=== PATIENT | male | born 1980 | race Caucasian/White ===

== ENCOUNTER 2020-06-05 10:56 | Observation (INO) | payer OTHER ==
--- NOTE | 2020-06-05 11:33 | ED ---
Recheck HPI - General Source: patient, RN notes reviewed, old records reviewed Mode of arrival: ambulatory Limitations: no limitations <Cary Carson - Last Filed: 06/05/20 13:50> <Christina Silverman - Last Filed: 06/06/20 13:45> - General Chief Complaint: Recheck/Abnormal Lab/Rx Stated Complaint: sent by dialysis for eval Time Seen by Provider: 06/05/20 11:04 - History of Present Illness Initial Comments: 40-year-old male who is a resident of [place] recently moved this weekend to hear presents to the ER today from dialysis needing lab work and establish PCP in order to receive dialysis. He states that he was started on dialysis in March of this year for her renal failure and heart failure in [place]. He has an indwelling PICC line. Patient reports that his last dialysis was on Friday. At this time he denies any significant chest pain or shortness of breath. He states he moved here and does not have a PCP or her peanut separator in the area to continue to order dialysis for him. Patient states that he is a diabetic. He is a relatively poor historian and does not have any exact description of the sudden onset of renal failure at this time. (Cary Carson) - Related Data Home Medications Medication Instructions Recorded Confirmed Glimepiride [Amaryl] 1 mg PO DAILY 06/05/20 06/05/20 amLODIPine [Norvasc] 10 mg PO HS 06/05/20 06/05/20 carvediloL [Coreg] 6.25 mg PO BID 06/05/20 06/05/20 Allergies Allergy/AdvReac Type Severity Reaction Status Date / Time No Known Allergies Allergy Verified 06/05/20 12:52 Review of Systems ROS Other: All systems not noted in ROS Statement are negative. <Cary Carson - Last Filed: 06/05/20 13:50> ROS Other: All systems not noted in ROS Statement are negative. <Christina Silverman - Last Filed: 06/06/20 13:45> ROS Statement: Those systems with pertinent positive or pertinent negative responses have been documented in the HPI. 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 Absent: scleral icterus, conjunctival injection, periorbital swelling ENT exam: Present: normal exam, mucous membranes moist Neck exam: Present: normal inspection. Absent: tenderness, meningismus, lymphadenopathy Respiratory exam: Present: normal lung sounds bilaterally. Absent: respiratory distress, wheezes, rales, rhonchi, stridor Cardiovascular Exam: Present: regular rate, normal rhythm, normal heart sounds, other ( is an indwelling PIC line over the right chest wall). Absent: systolic murmur, diastolic murmur, rubs, gallop, clicks GI/Abdominal exam: Present: soft, normal bowel sounds. Absent: distended, tenderness, guarding, rebound, rigid Extremities exam: Present: normal inspection, full ROM, normal capillary refill. Absent: tenderness, pedal edema, joint swelling, calf tenderness Back exam: Present: normal inspection Neurological exam: Present: alert, oriented X3, CN II-XII intact <CarlaCary tillman - Last Filed: 06/05/20 13:50> - General Exam Comments Initial Comments: 40-year-old male. Alert and oriented. (Cary Carson) Course Vital Signs 06/05/20 06/05/20 06/05/20 10:58 12:44 14:50 Temperature 98.3 F Pulse Rate 90 82 87 Respiratory 18 18 18 Rate Blood Pressure 181/91 146/76 163/87 O2 Sat by Pulse 100 99 99 Oximetry Medical Decision Making - Lab Data Result diagrams: 06/05/20 12:15 06/05/20 12:15 <Cary Carson - Last Filed: 06/05/20 13:50> - Lab Data Result diagrams: 06/06/20 05:49 06/06/20 05:49 <Christina Silverman - Last Filed: 06/06/20 13:45> - Medical Decision Making 40-year-old male history of renal failure and CHF and diabetes presents emergency department today after recently moving from [place] with complaints of needing dialysis. He showed up to [facility] with no orders for dialysis and does not have a PCP or peanut separator of the area. Patient states he was told to come here for evaluation. At this time Patient has no complaints. Labs show evidence of renal failure. He does still produce urine. Patient's case was discussed with Dr. Silverman movements are and the Patient has no PCP to follow-up we will admit the Patient for observation for dialysis of consultation nephrology as well as social work for further treatment for chronic conditions at this time. He has been on dialysis since March and does have an indwelling PICC line. (Cary Carson) I was available for consultation in the emergency department. The history and physical exam were done by the midlevel provider. I was consulted for this patients care. I reviewed the case with the midlevel provider and based on their presentation of the patient, I agree with the assessment, medical decision making and plan of care as documented. I evaluated the patient myself. Chart was dictated using [employer] dictation software. Attempts were made to correct any dictation errors however some typographical errors may persist. Patient was seen during a national state of emergency due to the Covid-19 pandemic. (Christina Silverman) - Lab Data Lab Results 06/05/20 06/05/20 06/05/20 Range/Units 12:15 12:15 12:15 WBC 7.4 (3.8-10.6) k/uL RBC 2.87 L (4.30-5.90) m/uL Hgb 8.9 L (13.0-17.5) gm/dL Hct 26.4 L (39.0-53.0) % MCV 92.0 (80.0-100.0) fL MCH 30.8 (25.0-35.0) pg MCHC 33.5 (31.0-37.0) g/dL RDW 13.6 (11.5-15.5) % Plt Count 264 (150-450) k/uL MPV 7.3 Neutrophils % 70 % Lymphocytes % 18 % Monocytes % 5 % Eosinophils % 4 % Basophils % 1 % Neutrophils # 5.2 (1.3-7.7) k/uL Lymphocytes # 1.4 (1.0-4.8) k/uL Monocytes # 0.4 (0-1.0) k/uL Eosinophils # 0.3 (0-0.7) k/uL Basophils # 0.1 (0-0.2) k/uL PT 9.6 (9.0-12.0) sec INR 0.9 (<1.2) APTT 21.9 L (22.0-30.0) sec Sodium 139 (137-145) mmol/L Potassium 4.7 (3.5-5.1) mmol/L Chloride 110 H (98-107) mmol/L Carbon Dioxide 25 (22-30) mmol/L Anion Gap 4 mmol/L BUN 51 H (9-20) mg/dL Creatinine 5.90 H (0.66-1.25) mg/dL Est GFR (CKD-EPI)AfAm 13 (>60 ml/min/1.73 sqM) Est GFR (CKD-EPI)NonAf 11 (>60 ml/min/1.73 sqM) Glucose 260 H (74-99) mg/dL Calcium 8.0 L (8.4-10.2) mg/dL Total Bilirubin 0.3 (0.2-1.3) mg/dL AST 16 L (17-59) U/L ALT 10 (4-49) U/L Alkaline Phosphatase 92 (38-126) U/L Total Protein 5.2 L (6.3-8.2) g/dL Albumin 2.8 L (3.5-5.0) g/dL Coronavirus (PCR) (Not Detectd) 06/05/20 Range/Units 12:15 WBC (3.8-10.6) k/uL RBC (4.30-5.90) m/uL Hgb (13.0-17.5) gm/dL Hct (39.0-53.0) % MCV (80.0-100.0) fL MCH (25.0-35.0) pg MCHC (31.0-37.0) g/dL RDW (11.5-15.5) % Plt Count (150-450) k/uL MPV Neutrophils % % Lymphocytes % % Monocytes % % Eosinophils % % Basophils % % Neutrophils # (1.3-7.7) k/uL Lymphocytes # (1.0-4.8) k/uL Monocytes # (0-1.0) k/uL Eosinophils # (0-0.7) k/uL Basophils # (0-0.2) k/uL PT (9.0-12.0) sec INR (<1.2) APTT (22.0-30.0) sec Sodium (137-145) mmol/L Potassium (3.5-5.1) mmol/L Chloride (98-107) mmol/L Carbon Dioxide (22-30) mmol/L Anion Gap mmol/L BUN (9-20) mg/dL Creatinine (0.66-1.25) mg/dL Est GFR (CKD-EPI)AfAm (>60 ml/min/1.73 sqM) Est GFR (CKD-EPI)NonAf (>60 ml/min/1.73 sqM) Glucose (74-99) mg/dL Calcium (8.4-10.2) mg/dL Total Bilirubin (0.2-1.3) mg/dL AST (17-59) U/L ALT (4-49) U/L Alkaline Phosphatase (38-126) U/L Total Protein (6.3-8.2) g/dL Albumin (3.5-5.0) g/dL Coronavirus (PCR) Not Detected (Not Detectd) 06/05/20 13:20 EKG performed at 1209 shows normal sinus rhythm possible left atrial enlarg ement. Ventricular hypertrophy with repolarization around. Prolonged QT. Ventricular rate of 85 bpm.. Interval is 132 ms. QS ration is 96 ms. QT QTc is 412/[address] elevation. (Cary Carson) Disposition Is patient prescribed a controlled substance at d/c from ED?: No Time of Disposition: 13:52 <Cary Carson - Last Filed: 06/05/20 13:50> <Christina Silverman - Last Filed: 06/06/20 13:45> Clinical Impression: Dialysis patient, Diabetes, Renal failure Disposition: ADMITTED IP TO THIS HOSP Condition: Stable
[2020-06-05] MEDS ORDERED: LABETALOL 5 MG/ML VIAL MDV IVP STA (11:36)
[2020-06-05 12:30] LABS: Basophils # (A) 0.1 k/uL (0-0.2); Basophils % (A) 1 %; Eosinophils # (A) 0.3 k/uL (0-0.7); Eosinophils % (A) 4 %; HCT 26.4 % (39.0-53.0); HGB 8.9 gm/dL (13.0-17.5); Lymphocytes # (A) 1.4 k/uL (1.0-4.8); Lymphocytes % (A) 18 %; MCH 30.8 pg (25.0-35.0); MCHC 33.5 g/dL (31.0-37.0); Mean Platelet Volume 7.3; Monocytes # (A) 0.4 k/uL (0-1.0); Monocytes % (A) 5 %; Neutrophils # (A) 5.2 k/uL (1.3-7.7); Neutrophils % (A) 70 %; Platelet Count 264 k/uL (150-450); RBC 2.87 m/uL (4.30-5.90); RDW 13.6 % (11.5-15.5); WBC 7.4 k/uL (3.8-10.6)
[2020-06-05 12:39] LABS: Albumin 2.8 g/dL (3.5-5.0); Potassium 4.7 mmol/L (3.5-5.1); Total Bilirubin 0.3 mg/dL (0.2-1.3); Total Protein 5.2 g/dL (6.3-8.2)
[2020-06-05 12:48] LABS: INR 0.9 (<1.2)
[2020-06-05 12:49] LABS: Partial Thromboplastin Time 21.9 sec (22.0-30.0); Prothrombin Time 9.6 sec (9.0-12.0)
[2020-06-05] MEDS ORDERED: ACETAMINOPHEN TAB 325 MG TAB PO PRN (13:52)
[2020-06-05] MEDS ORDERED: traMADol 50 MG TAB PO PRN (13:52)
[2020-06-05] MEDS ORDERED: NALOXONE 0.4 MG/ML 1 ML VIAL IV PRN (13:52)
[2020-06-05] MEDS ORDERED: ONDANSETRON 4 MG/2 ML VIAL IVP PRN (13:52)
[2020-06-05] MEDS ORDERED: oxyCODONE-APAP 5-325MG 1 EACH TAB PO PRN (13:52)
--- NOTE | 2020-06-05 16:17 | P.HPIM ---
History of Present Illness H&P Date: 06/05/20 Chief Complaint: Patient needs dialysis 40-year-old male with a history of diabetes and hypertension with end- stage renal disease presents to [facility] needing dialysis. Patient just moved from [place] on Friday. Patient has not had time to establish with a primary care physician and a pastoral counselor. Patient states he usually gets dialysis Friday, Friday, and Friday. He states that he was started on dialysis in March of this year for his renal failure and heart failure in [place]. He has an indwelling PICC line. Patient states that he has been noncompliant with medical follow-up prior to his end-stage renal disease because he had no insurance intermittently throughout his life. As a result, he was unable to control his hypertension or diabetes which resulted in renal failure with dialysis treatment. Patient does smoke cigarettes on a daily basis. 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 Past Psychological History: No Psychological Hx Reported Smoking Status: Current every day smoker Past Alcohol Use History: None Reported Past Drug Use History: Marijuana Medications and Allergies Home Medications Medication Instructions Recorded Confirmed Type Glimepiride [Amaryl] 1 mg PO DAILY 06/05/20 06/05/20 History amLODIPine [Norvasc] 10 mg PO HS 06/05/20 06/05/20 History carvediloL [Coreg] 6.25 mg PO BID 06/05/20 06/05/20 History Allergies Allergy/AdvReac Type Severity Reaction Status Date / Time No Known Allergies Allergy Verified 06/05/20 12:52 Physical Exam Osteopathic Statement: *. No significant issues noted on an osteopathic structural exam other than those noted in the History and Physical/Consult. Vitals: Vital Signs Temp Pulse Resp BP Pulse Ox 06/05/20 14:50 87 18 163/87 99 06/05/20 12:44 82 18 146/76 99 06/05/20 10:58 98.3 F 90 18 181/91 100 Intake and Output 06/05/20 06/05/20 06/05/20 06:59 14:59 22:59 Other: Weight 61.235 kg General: [non toxic], [no distress], [appears at stated age] Derm: [warm], [dry] Head: [atraumatic], [normocephalic], [symmetric] Eyes: [EOMI], [no lid lag], [anicteric sclera] Mouth: [no lip lesion], [mucus membranes moist] Cardiovascular: [S1S2 reg], [no murmur], [positive posterior tibial pulse bilateral], Lungs: [CTA bilateral], [no rhonchi, no rales] , [no accessory muscle use] Abdominal: [soft], [ nontender to palpation], [no guarding], [no appreciable organomegaly] Ext: [no gross muscle atrophy], [no edema], [no contractures] Neuro: [ CN II-XI grossly intact], [no focal neuro deficits] Psych: [Alert], [oriented], [appropriate affect] Results CBC & Chem 7: 06/05/20 12:15 06/05/20 12:15 Labs: Abnormal Lab Results - Last 24 Hours (Table) 06/05/20 06/05/20 06/05/20 Range/Units 12:15 12:15 12:15 RBC 2.87 L (4.30-5.90) m/uL Hgb 8.9 L (13.0-17.5) gm/dL Hct 26.4 L (39.0-53.0) % APTT 21.9 L (22.0-30.0) sec Chloride 110 H (98-107) mmol/L BUN 51 H (9-20) mg/dL Creatinine 5.90 H (0.66-1.25) mg/dL Glucose 260 H (74-99) mg/dL Calcium 8.0 L (8.4-10.2) mg/dL AST 16 L (17-59) U/L Total Protein 5.2 L (6.3-8.2) g/dL Albumin 2.8 L (3.5-5.0) g/dL Assessment and Plan Assessment: 1. End-stage renal disease on hemodialysis Friday and Friday Consult nephrology for hemodialysis management 2. Normocytic anemia likely secondary to anemia of chronic disease with renal failure Check iron studies Monitor hemoglobin 3. Ruk-hqispjf-ovaxrajcm diabetes mellitus with hyperglycemia Insulin sliding scale Check hemoglobin A1c Lipid panel 4. Tobacco dependent NicoDerm CQ Smoking cessation counseled 5. GI and DVT prophylaxis 6. A.m. labs Patient is full code And does not have a PCP since he is new to the area Greater than 45 minutes spent with greater than 50% [id number] time coordinating care and counseling patient Patient will be admitted to obs Time with Patient: Greater than 30
[2020-06-05] MEDS: FAMOTIDINE 20 MG TAB PO SCH (16:28)
[2020-06-05] MEDS: carvediloL 6.25 MG TAB PO SCH (16:28)
[2020-06-05] MEDS: NICOTINE 21MG/24HR PATCH TRANSDERM SCH (16:28)
[2020-06-05 17:11] LABS: Glucose,Whole Blood 118 mg/dL (75-99)
[2020-06-05] MEDS: INSULIN ASPART (NovoLOG) 100 UNIT/ML VIAL SQ SCH (17:17)
[2020-06-05] MEDS: amLODIPine 10 MG TAB PO SCH (22:18)
[2020-06-05 22:21] LABS: Glucose,Whole Blood 243 mg/dL (75-99)
[2020-06-06 06:24] LABS: Basophils # (A) 0.1 k/uL (0-0.2); Basophils % (A) 1 %; Eosinophils # (A) 0.3 k/uL (0-0.7); Eosinophils % (A) 5 %; HCT 24.2 % (39.0-53.0); HGB 8.1 gm/dL (13.0-17.5); Lymphocytes # (A) 1.6 k/uL (1.0-4.8); Lymphocytes % (A) 23 %; MCH 30.6 pg (25.0-35.0); MCHC 33.5 g/dL (31.0-37.0); MCV 91.6 fL (80.0-100.0); Mean Platelet Volume 7.1; Monocytes # (A) 0.4 k/uL (0-1.0); Monocytes % (A) 6 %; Neutrophils # (A) 4.3 k/uL (1.3-7.7); Neutrophils % (A) 63 %; Platelet Count 263 k/uL (150-450); RBC 2.64 m/uL (4.30-5.90); RDW 13.5 % (11.5-15.5); WBC 6.7 k/uL (3.8-10.6)
[2020-06-06 07:17] LABS: Glucose,Whole Blood 98 mg/dL (75-99)
[2020-06-06] MEDS: INSULIN ASPART (NovoLOG) 100 UNIT/ML VIAL SQ SCH ×4 (07:22→21:43)
[2020-06-06 07:33] LABS: Appearance,Urine Clear (Clear); Bacteria,Urine Rare /hpf; Bilirubin,Urine Negative (Negative); Blood,Urine Trace (Negative); Color,Urine Light Yellow; Glucose,Urine (UA) 3+ (Negative); Ketones,Urine Negative (Negative); Leukocyte Esterase,Urine Negative (Negative); Mucus,Urine Rare /hpf; Nitrite,Urine Negative (Negative); PH, Urine 6.5 (5.0-8.0); Protein,Urine 3+ (Negative); RBC,Urine 2 /hpf (0-5); Specific Gravity,Urine 1.014 (1.001-1.035); Urobilinogen,Urine <2.0 mg/dL (<2.0); WBC,Urine 3 /hpf (0-5)
[2020-06-06] MEDS: carvediloL 6.25 MG TAB PO SCH ×2 (08:24→17:48)
[2020-06-06] MEDS: FAMOTIDINE 20 MG TAB PO SCH (08:24)
[2020-06-06] MEDS: GLIMEPIRIDE 1 MG TAB PO SCH (08:24)
[2020-06-06] MEDS: NICOTINE 21MG/24HR PATCH TRANSDERM SCH (08:25)
[2020-06-06 10:23] LABS: % Iron Saturation 18.25 (15.00-50.00); African American GFR (CKD) 13.1 (60.0-200.0); Albumin 2.9 g/dL (3.80-4.90); Albumin/Globulin Ratio 1.93 (1.60-3.17); Anion Gap 9.2 mmol/L (4.00-12.00); BUN/Creat Ratio 9.3 Ratio (12.00-20.00); Calcium 8.3 mg/dL (8.7-10.3); Carbon Dioxide 21.8 mmol/L (21.6-31.8); Chol/HDL Ratio 5.22; Globulin 1.5 g/dL (1.6-3.3); LDL Cholesterol,Calculated 136.6 mg/dL (0.0-131.0); Non-African American GFR(CKD) 11.3 (60.0-200.0); Potassium 4.4 mmol/L (3.5-5.5); Total Bilirubin 0.1 mg/dL (0.3-1.2); Total Protein 4.4 g/dL (6.2-8.2); VLDL Calculation 36.4 mg/dL (5.00-40.00)
--- NOTE | 2020-06-06 10:52 | P.NPCON ---
History of Present Illness - Reason for Consult end stage renal disease - History of Present Illness Reason for consultation: End-stage renal disease History of present illness: Patient is a 40-year-old male seen in renal consultation for end-stage renal disease. He is maintained on hemodialysis on Friday schedule. Patient states he was recently started on dialysis and was receiving treatments in [place]. He moved here but doesn't have dialysis set up outpatient. He came to the hospital to get his dialysis treatment and for outpatient dialysis set up. His last treatment was on Friday. He makes good urine. Denies vomiting or diarrhea. No fever or chills. Oral intake is fair. No edema. Patient states the reason for his kidney failure his blood pressure and uncontrolled diabetes. Blood pressures stable. No chest pain or shortness of breath. He denies family history of renal disease. Vital signs are stable. General: The patient appeared well nourished and normally developed. HEENT: Head exam is unremarkable. Neck is without jugular venous distension. LUNGS: Breath sounds decreased. HEART: Rate and Rhythm are regular. ABDOMEN: Soft, nontender. EXTREMITITES: No edema. 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 Past Psychological History: No Psychological Hx Reported Smoking Status: Current every day smoker Past Alcohol Use History: None Reported Past Drug Use History: Marijuana Medications and Allergies Home Medications Medication Instructions Recorded Confirmed Type Glimepiride [Amaryl] 1 mg PO DAILY 06/05/20 06/05/20 History amLODIPine [Norvasc] 10 mg PO HS 06/05/20 06/05/20 History carvediloL [Coreg] 6.25 mg PO BID 06/05/20 06/05/20 History Allergies Allergy/AdvReac Type Severity Reaction Status Date / Time No Known Allergies Allergy Verified 06/05/20 12:52 Physical Exam Vitals: Vital Signs Temp Pulse Pulse Resp BP BP Pulse Ox 06/06/20 06:57 98.2 F 82 17 150/76 99 06/06/20 02:00 97.7 F 75 14 141/69 100 06/05/20 22:00 97.9 F 80 15 157/82 98 06/05/20 16:24 98.4 F 89 16 173/89 98 06/05/20 14:50 87 18 163/87 99 06/05/20 12:44 82 18 146/76 99 06/05/20 10:58 98.3 F 90 18 181/91 100 Intake and Output 06/05/20 06/06/20 06/06/20 22:59 06:59 14:59 Other: Voiding Method Toilet # Voids 0 1 Results - Lab Results Most recent lab results Calcium 8.3 mg/dL (8.7-10.3) L 06/06/20 05:49 06/06/20 05:49 06/06/20 05:49 Assessment and Plan Plan: Assessment: 1. End-stage renal disease maintained on hemodialysis on Friday schedule. Has a permacath. 2. Diabetes mellitus. 3. Hypertension with chronic kidney disease. Stable. 4. Anemia of chronic kidney disease. Rule out iron deficiency. Plan: Hemodialysis today and again tomorrow. Check iron studies. Case management to set up outpatient hemodialysis. Thank you for the consultation. I will continue to follow the patient with you during his hospital stay.
--- NOTE | 2020-06-06 10:58 | XR ---
EXAMINATION TYPE: XR chest 2V DATE OF EXAM: 06/06/2020 COMPARISON: NONE TECHNIQUE: PA and lateral views submitted. HISTORY: Shortness of breath FINDINGS: The lungs are clear and there is no pneumothorax, pleural effusion, or focal pneumonia. Right-sided dialysis catheter. No overt failure. Heart size normal. IMPRESSION: 1. No acute process.
[2020-06-06 11:51] LABS: Glucose,Whole Blood 165 mg/dL (75-99)
[2020-06-06 12:52] LABS: Hepatitis B Surface AB- Quant 3.5 mIU/mL; Hepatitis B Surface Antibody Non-Reactive (Non-Reactive); Hepatitis B Surface Antigen Non-Reactive (Non-Reactive)
--- NOTE | 2020-06-06 14:15 | P.PN ---
Subjective Progress Note Date: 06/06/20 No new complaints today. Pending dialysis. Objective - Vital Signs Vital signs: Vital Signs Temp 98.2 F 06/06/20 06:57 Pulse 82 06/06/20 06:57 Resp 17 06/06/20 06:57 BP 150/76 06/06/20 06:57 Pulse Ox 99 06/06/20 06:57 Intake & Output 06/05/20 06/06/20 06/06/20 18:59 06:59 18:59 Weight 61.235 kg Other: Voiding Method Toilet # Voids 0 1 - Exam Gen: awake, alert HEENT: normocephalic, atraumatic, good hearing acuity, moist mucous membranes Resp: good air exchange, breathing comfortably with no accessory muscle use CVS: good distal perfusion x 4, GI: soft, NTTP, ND : no SPT, no CVAT, hooper catheter not present MSK: no pitting edema, no clubbing Neuro: non-focal, moving all extremities Psych: cooperative, euthymic mood - Labs CBC & Chem 7: 06/06/20 05:49 06/06/20 05:49 Labs: Abnormal Lab Results - Last 24 Hours (Table) 06/05/20 06/05/20 06/06/20 Range/Units 17:09 22:20 05:49 RBC 2.64 L (4.30-5.90) m/uL Hgb 8.1 L (13.0-17.5) gm/dL Hct 24.2 L (39.0-53.0) % Chloride (96-109) mmol/L BUN (9.0-27.0) mg/dL Creatinine (0.6-1.5) mg/dL Est GFR (CKD-EPI)AfAm (60.0-200.0) Est GFR (CKD-EPI)NonAf (60.0-200.0) BUN/Creatinine Ratio (12.00-20.00) Ratio POC Glucose (mg/dL) 118 H 243 H (75-99) mg/dL Calcium (8.7-10.3) mg/dL Iron (65-175) ug/dL Total Bilirubin (0.3-1.2) mg/dL Total Protein (6.2-8.2) g/dL Albumin (3.80-4.90) g/dL Globulin (1.6-3.3) g/dL Triglycerides (0.0-149.0) mg/dL Cholesterol (0-200) mg/dL LDL Cholesterol, Calc (0.0-131.0) mg/dL Urine Protein (Negative) Urine Glucose (UA) (Negative) Urine Blood (Negative) Urine Bacteria (None) /hpf Urine Mucus (None) /hpf 06/06/20 06/06/20 06/06/20 Range/Units 05:49 07:16 11:49 RBC (4.30-5.90) m/uL Hgb (13.0-17.5) gm/dL Hct (39.0-53.0) % Chloride 113 H (96-109) mmol/L BUN 53.0 H (9.0-27.0) mg/dL Creatinine 5.7 H (0.6-1.5) mg/dL Est GFR (CKD-EPI)AfAm 13.1 L (60.0-200.0) Est GFR (CKD-EPI)NonAf 11.3 L (60.0-200.0) BUN/Creatinine Ratio 9.30 L (12.00-20.00) Ratio POC Glucose (mg/dL) 165 H (75-99) mg/dL Calcium 8.3 L (8.7-10.3) mg/dL Iron 46 L (65-175) ug/dL Total Bilirubin 0.1 L (0.3-1.2) mg/dL Total Protein 4.4 L (6.2-8.2) g/dL Albumin 2.90 L (3.80-4.90) g/dL Globulin 1.5 L (1.6-3.3) g/dL Triglycerides 182.0 H (0.0-149.0) mg/dL Cholesterol 214 H (0-200) mg/dL LDL Cholesterol, Calc 136.6 H (0.0-131.0) mg/dL Urine Protein 3+ H (Negative) Urine Glucose (UA) 3+ H (Negative) Urine Blood Trace H (Negative) Urine Bacteria Rare H (None) /hpf Urine Mucus Rare H (None) /hpf Assessment and Plan Assessment: 1. ESRD on iHD, MWF 2. Normocytic Anemia 3. DM, type II 4. Nicotine Abuse 40 year old man with DM, Nicotine abuse, ESRD presented after missed dialysis session having just moved from [place] to [place]. 1. End-stage renal disease on hemodialysis Friday and Friday Consult nephrology for hemodialysis management 2. Normocytic anemia likely secondary to anemia of chronic disease with renal f ailure Check iron studies Monitor hemoglobin 3. Qbw-khieohp-yepxmbrgj diabetes mellitus with hyperglycemia Insulin sliding scale Check hemoglobin A1c Lipid panel 4. Tobacco dependent NicoDerm CQ Smoking cessation counseled 5. GI and DVT prophylaxis 6. A.m. labs Patient is full code And does not have a PCP since he is new to the area Greater than 45 minutes spent with greater than 50% [id number] time coordinating care and counseling patient Patient will be admitted to obs
[2020-06-06 16:49] LABS: Hemoglobin A1C 7.8 % (4.0-6.0)
[2020-06-06 17:05] LABS: Glucose,Whole Blood 276 mg/dL (75-99)
[2020-06-06] MEDS: amLODIPine 10 MG TAB PO SCH (20:23)
[2020-06-06 20:30] LABS: Glucose,Whole Blood 214 mg/dL (75-99)
[2020-06-06 21:42] LABS: Glucose,Whole Blood 195 mg/dL (75-99)
[2020-06-07] MEDS: carvediloL 6.25 MG TAB PO SCH (07:42)
[2020-06-07] MEDS: NICOTINE 21MG/24HR PATCH TRANSDERM SCH (07:42)
[2020-06-07] MEDS: FAMOTIDINE 20 MG TAB PO SCH (07:42)
[2020-06-07] MEDS: GLIMEPIRIDE 1 MG TAB PO SCH (07:42)
[2020-06-07 08:00] LABS: Glucose,Whole Blood 229 mg/dL (75-99)
[2020-06-07] MEDS: INSULIN ASPART (NovoLOG) 100 UNIT/ML VIAL SQ SCH ×2 (08:08→11:18)
[2020-06-07 10:00] VITALS: TEMP 98.2
[2020-06-07 10:24] LABS: Ferritin 38.9 ng/mL (22.0-322.0)
--- NOTE | 2020-06-07 10:48 | P.PN ---
Subjective Patient is seen in follow-up for end-stage renal disease. Patient more from another state recently. Underwent dialysis yesterday and today as well. Outpatient dialysis being set up. No active complaints. Vital signs are stable. General: The patient appeared well nourished and normally developed. HEENT: Head exam is unremarkable. Neck is without jugular venous distension. LUNGS: Breath sounds decreased. HEART: Rate and Rhythm are regular. ABDOMEN: Soft, nontender. EXTREMITITES: No edema. Objective - Vital Signs Vital signs: Vital Signs Temp 98.2 F 06/07/20 07:59 Pulse 75 06/07/20 10:30 Resp 20 06/07/20 07:59 BP 144/80 06/07/20 10:30 Pulse Ox 96 06/07/20 10:30 Intake & Output 06/06/20 06/07/20 06/07/20 18:59 06:59 18:59 Intake Total 180 Output Total 500 Balance -320 Intake: Oral 180 Output: Hemodialysis 500 Other: Voiding Method Toilet Toilet # Voids 1 1 - Labs CBC & Chem 7: 06/06/20 05:49 06/06/20 05:49 Labs: Abnormal Lab Results - Last 24 Hours (Table) 06/06/20 06/06/20 06/06/20 Range/Units 05:49 11:49 17:01 POC Glucose (mg/dL) 165 H 276 H (75-99) mg/dL Hemoglobin A1c 7.8 H (4.0-6.0) % Iron (65-175) ug/dL 06/06/20 06/06/20 06/07/20 Range/Units 20:29 21:39 04:53 POC Glucose (mg/dL) 214 H 195 H (75-99) mg/dL Hemoglobin A1c (4.0-6.0) % Iron 45 L (65-175) ug/dL 06/07/20 Range/Units 07:59 POC Glucose (mg/dL) 229 H (75-99) mg/dL Hemoglobin A1c (4.0-6.0) % Iron (65-175) ug/dL Assessment and Plan Plan: Assessment: 1. End-stage renal disease maintained on hemodialysis on Friday schedule. Has a permacath. 2. Diabetes mellitus. 3. Hypertension with chronic kidney disease. Stable. 4. Anemia of chronic kidney disease. Iron deficiency noted. Plan: Currently seen while undergoing hemodialysis. I will give him a dose of IV iron today. Outpatient dialysis being set up by case therapist. Patient wants to leave AMA today to be with his family. I strongly advised him to stay until hemodialysis set up for him outpatient. Life-threatening risks, including , of missing hemodialysis has been discussed with the patient. Patient states he will return to the hospital in the next 2-3 days to get hemodialysis.
[2020-06-07] MEDS ORDERED: SODIUM FERRIC GLUCONAT-SUCROSE 125 MG in SODIUM CHLORIDE 0.9% 100 ML IVPB ONE (11:15)
[2020-06-07 11:27] LABS: Glucose,Whole Blood 230 mg/dL (75-99)
[2020-06-07 12:22] VITALS: BP 184/93; PULSE 74; RESP 18
--- NOTE | 2020-06-07 12:26 | P.DS ---
Providers Date of admission: 06/05/20 13:53 Expected date of discharge: 06/07/20 Attending physician: Asaf Mauricio Consults: 06/05/20 13:52 Consult Physician Stat Consulting Provider: Fredo Valentin Consult Reason/Comments: dialysis pt, from [place], no nephro Do you want consulting provider notified?: Yes Primary care physician: Stated None Hospital Course: 1. ESRD on iHD, MWF 2. Normocytic Anemia 3. DM, type II 4. Nicotine Abuse 40 year old man with DM, Nicotine abuse, ESRD presented after missed dialysis session having just moved from [place] to [place]. He rec'd 2 dialysis sessions and plan was to await dialysis chair prior to discharge however, patient decided to leave [place] because of upcoming holidays and desire to see his children. He tells me that he is aware of the risks including , debility. He informs staff and myself that his intention is to return to the hospital in 2-3 days to start the process of gaining insurance approval and dialysis chair. Pt left [place]. Assessment: Gen: awake, alert HEENT: normocephalic, atraumatic, good hearing acuity, moist mucous membranes Resp: good air exchange, breathing comfortably with no accessory muscle use CVS: good distal perfusion x 4, GI: soft, NTTP, ND : no SPT, no CVAT, hooper catheter not present MSK: no pitting edema, no clubbing Neuro: non-focal, moving all extremities Psych: cooperative, euthymic mood Patient Condition at Discharge: Stable Plan - Discharge Summary New Discharge Prescriptions: Continue Glimepiride [Amaryl] 1 mg PO DAILY carvediloL [Coreg] 6.25 mg PO BID #60 tab amLODIPine [Norvasc] 10 mg PO HS #30 tab Discharge Medication List Glimepiride [Amaryl] 1 mg PO DAILY 06/05/20 [History] amLODIPine [Norvasc] 10 mg PO HS #30 tab 06/07/20 [Rx] carvediloL [Coreg] 6.25 mg PO BID #60 tab 06/07/20 [Rx] Follow up Appointment(s)/Referral(s): [facility] [REFERRING] - As Needed [facility] [REFERRING] - As Needed None,Stated [Primary Care Provider] - 1-2 days Discharge Disposition: Left Against Medical Advice
== END 2020-06-07 13:55 | disposition left against medical advice (07) ==
LOC: EC 10:56 → 5NMEDONC 13:53
PROVIDERS: ADMIT Internal Medicine; ATTEND Internal Medicine
DX: N18.6 End stage renal disease (principal); D63.1 Anemia in chronic kidney disease; E11.22 Type 2 diabetes mellitus with diabetic chronic kidney disease; E11.65 Type 2 diabetes mellitus with hyperglycemia; Z20.828 Contact with and (suspected) exposure to other viral communicable diseases; E61.1 Iron deficiency; F17.210 Nicotine dependence, cigarettes, uncomplicated; I13.2 Hypertensive heart and chronic kidney disease with heart failure and with stage 5 chronic kidney disease, or end stage renal disease; I50.9 Heart failure, unspecified; Z79.84 Long term (current) use of oral hypoglycemic drugs; Z79.899 Other long term (current) drug therapy; Z91.19 Patient's noncompliance with other medical treatment and regimen; Z99.2 Dependence on renal dialysis
CPT/HCPCS: 90935 ×2; 96365; 99285; 36415; 93005; 82652; 80061; 80053 ×2; 84443; 82728; 83540 ×2; 83550 ×2; 85025 ×2; 85610; 85730; 86706; 87340; 81001; 86704; 83036; 87635; 71046; G0378 ×3; S4990 ×3; J2916

== ENCOUNTER 2020-07-31 09:21 | Emergency (ER) | payer OTHER ==
[2020-07-31] MEDS ORDERED: SODIUM CHLORIDE 0.9% 1,000 ML IV STA (09:49)
[2020-07-31] MEDS ORDERED: ONDANSETRON 4 MG/2 ML VIAL IVP STA (09:49)
[2020-07-31] MEDS ORDERED: PANTOPRAZOLE 40 MG/10 ML VIAL IVP STA (09:50)
[2020-07-31 10:07] LABS: Basophils # (A) 0.2 k/uL (0-0.2); Basophils % (A) 2 %; Eosinophils # (A) 0.3 k/uL (0-0.7); Eosinophils % (A) 3 %; Lymphocytes # (A) 1.4 k/uL (1.0-4.8); Lymphocytes % (A) 12 %; MCH 31.1 pg (25.0-35.0); MCHC 33.5 g/dL (31.0-37.0); MCV 92.6 fL (80.0-100.0); Mean Platelet Volume 6.8; Monocytes # (A) 0.7 k/uL (0-1.0); Monocytes % (A) 6 %; Neutrophils # (A) 8.7 k/uL (1.3-7.7); Neutrophils % (A) 76 %; Platelet Count 428 k/uL (150-450); RBC 3.57 m/uL (4.30-5.90); RDW 13.8 % (11.5-15.5); WBC 11.4 k/uL (3.8-10.6)
[2020-07-31 10:09] LABS: HGB 11.1 gm/dL (13.0-17.5)
--- NOTE | 2020-07-31 10:17 | ED ---
Nausea/Vomiting/Diarrhea HPI - General Chief complaint: Nausea/Vomiting/Diarrhea Stated complaint: vomiting Time Seen by Provider: 07/31/20 09:31 Source: patient Mode of arrival: ambulatory Limitations: no limitations - History of Present Illness Initial comments: Patient is a 40-year-old male with history of diabetes, renal disease on dialysis, heart failure, presenting to emergency Department with complaints of vomiting for the past 4 days. Patient denies any abdominal pain other than the occasional stomach cramping. He denies any diarrhea. He states he has been having issues with constipation, he is on a stool softener. He did have a bowel movement 1-2 days ago. Denies having a fever, no chills, no chest pain or shortness of breath, no abdominal pain. He states he normally has dialysis Friday, , Saturdays. He states he did not go this past Friday secondary to vomiting. Patient has no further complaints at this time. Upon arrival to the ER, patient is hypertensive at 196/88, rest of vitals are normal. He did take his blood pressure medications this morning. - Related Data Home Medications Medication Instructions Recorded Confirmed Glimepiride [Amaryl] 1 mg PO DAILY 06/05/20 07/31/20 Sennosides/Docusate Sodium [Senna 1 tab PO DAILY 07/31/20 07/31/20 Plus 8.6-50 mg Tablet] amLODIPine [Norvasc] 10 mg PO DAILY 07/31/20 07/31/20 hydrALAZINE HCL [Apresoline] 25 mg PO TID 07/31/20 07/31/20 polyethylene glycoL 3350 [Miralax] 17 gm PO DAILY 07/31/20 07/31/20 Previous Rx's Medication Instructions Recorded carvediloL [Coreg] 6.25 mg PO BID #60 tab 06/07/20 Allergies Allergy/AdvReac Type Severity Reaction Status Date / Time No Known Allergies Allergy Verified 07/31/20 10:21 Review of Systems ROS Statement: Those systems with pertinent positive or pertinent negative responses have been documented in the HPI. ROS Other: All systems not noted in ROS Statement are negative. 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 Patient is nontoxic and in no acute distress. HEAD: Atraumatic, normocephalic. EYES: Pupils equal round and reactive to light, extraocular movements intact, sclera anicteric, conjunctiva are normal. Eyelids were unremarkable. ENT: TMs normal, nares patent, oropharynx clear without exudates. Moist mucous membranes. NECK: Normal range of motion, supple without lymphadenopathy or JVD. LUNGS: Unlabored respirations. Breath sounds clear to auscultation bilaterally and equal. No wheezes rales or rhonchi. HEART: Regular rate and rhythm without murmurs, rubs or gallops. ABDOMEN: Soft, nontender, normoactive bowel sounds. No guarding, no rebound. No masses appreciated. : Deferred MUSCULOSKELETAL: Normal extremities with adequate strength and normal range of motion, no pitting or edema. No clubbing or cyanosis. NEUROLOGICAL: Patient is alert and oriented x 3. Motor and sensory are also intact. Cranial nerves II through XII grossly intact. Symmetrical smile. Normal speech, normal gait. PSYCH: Normal mood, normal affect. SKIN: Warm, Dry, normal turgor, no rashes. Patient has recent graft of the left arm, no signs of infection. He also has a port in the right upper chest, again no signs of infection. Limitations: no limitations Course Vital Signs 07/31/20 07/31/20 07/31/20 09:27 10:12 11:30 Temperature 98.8 F Pulse Rate 86 89 88 Respiratory 18 18 16 Rate Blood Pressure 196/88 185/95 196/92 O2 Sat by Pulse 98 98 97 Oximetry 07/31/20 12:00 Temperature Pulse Rate 86 Respiratory 18 Rate Blood Pressure 185/87 O2 Sat by Pulse 98 Oximetry Medical Decision Making - Medical Decision Making Patient is 40-year-old male history of diabetes, kidney disease on dialysis, heart failure presenting with vomiting 4 days. No abdominal pain, no fevers. He did miss his last dialysis on Friday secondary to the vomiting. No abdominal pain on exam. He should've labs show a slight leukocytosis at 11.4, hemoglobin is 11.1. Patient's creatinine is 10.47 today, BUN is 57, potassium is normal at 4.3. Patient was given 1 L fluids, Zofran and Reglan, he does report improvement of symptoms. I discussed case with Dr. Valentin who recommended dialysis in the patient for 2 hours and then patient can be discharged home. Patient will then get his normal dialysis tomorrow. Patient is in agreement with this plan of care. Patient completed dialysis and will be discharged home. We will give him some Zofran for any additional nausea. I recommended continuing with his MiraLAX and laxative for constipation. He can follow-up with his regular doctor. Case discussed with Dr. Padilla. - Lab Data Result diagrams: 07/31/20 09:54 07/31/20 09:54 Lab Results 07/31/20 07/31/20 07/31/20 Range/Units 09:54 09:54 09:54 WBC 11.4 H (3.8-10.6) k/uL RBC 3.57 L (4.30-5.90) m/uL Hgb 11.1 L D (13.0-17.5) gm/dL Hct 33.0 L (39.0-53.0) % MCV 92.6 (80.0-100.0) fL MCH 31.1 (25.0-35.0) pg MCHC 33.5 (31.0-37.0) g/dL RDW 13.8 (11.5-15.5) % Plt Count 428 (150-450) k/uL MPV 6.8 Neutrophils % 76 % Lymphocytes % 12 % Monocytes % 6 % Eosinophils % 3 % Basophils % 2 % Neutrophils # 8.7 H (1.3-7.7) k/uL Lymphocytes # 1.4 (1.0-4.8) k/uL Monocytes # 0.7 (0-1.0) k/uL Eosinophils # 0.3 (0-0.7) k/uL Basophils # 0.2 (0-0.2) k/uL Sodium 136 L (137-145) mmol/L Potassium 4.3 (3.5-5.1) mmol/L Chloride 92 L (98-107) mmol/L Carbon Dioxide 34 H (22-30) mmol/L Anion Gap 10 mmol/L BUN 57 H (9-20) mg/dL Creatinine 10.47 H* (0.66-1.25) mg/dL Est GFR (CKD-EPI)AfAm 6 (>60 ml/min/1.73 sqM) Est GFR (CKD-EPI)NonAf 5 (>60 ml/min/1.73 sqM) Glucose 165 H (74-99) mg/dL Plasma Lactic Acid Hetcor 0.9 (0.7-2.0) mmol/L Calcium 12.6 H (8.4-10.2) mg/dL Magnesium 2.6 H (1.6-2.3) mg/dL Total Bilirubin 0.4 (0.2-1.3) mg/dL AST 18 (17-59) U/L ALT 8 (4-49) U/L Alkaline Phosphatase 78 (38-126) U/L Total Protein 6.4 (6.3-8.2) g/dL Albumin 3.6 (3.5-5.0) g/dL Lipase 44 (23-300) U/L Disposition Clinical Impression: Nausea & vomiting, Dialysis patient Disposition: HOME SELF-CARE Condition: Stable Instructions (If sedation given, give patient instructions): Acute Nausea and Vomiting (ED) Additional Instructions: Please return to the Emergency Department if symptoms worsen or any other concerns. Please complete your regular dialysis tomorrow as discussed. May take Zofran for any additional nausea. Please continue with MiraLAX and laxatives for constipation. Follow-up with your regular doctor. Is patient prescribed a controlled substance at d/c from ED?: No Referrals: None,Stated [Primary Care Provider] - 1-2 days
[2020-07-31 10:18] LABS: Albumin 3.6 g/dL (3.5-5.0); Calcium 12.6 mg/dL (8.4-10.2); Magnesium 2.6 mg/dL (1.6-2.3); Potassium 4.3 mmol/L (3.5-5.1); Total Bilirubin 0.4 mg/dL (0.2-1.3); Total Protein 6.4 g/dL (6.3-8.2)
[2020-07-31] MEDS ORDERED: diphenhydrAMINE 50 MG/ML 1 ML VIAL IVP STA (10:50)
[2020-07-31] MEDS ORDERED: METOCLOPRAMIDE 5 MG/ML 2 ML VIAL IVP STA (10:50)
--- NOTE | 2020-07-31 11:19 | XR ---
EXAMINATION TYPE: XR KUB DATE OF EXAM: 07/31/2020 COMPARISON: NONE HISTORY: Pain TECHNIQUE: One view abdominal series FINDINGS: The osseous structures are intact. The bowel gas pattern is nonspecific. Lung bases are clear. Pain extensive retained fecal debris throughout the colon correlate for constipation. Lucencies involving the femoral neck region bilaterally likely related to herniation pits IMPRESSION: 1. Nonspecific abdomen.
[2020-07-31] MEDS ORDERED: ONDANSETRON 4 MG ODT STARTER PACK 2 TAB BTL PO STA (13:40)
[2020-07-31 14:28] VITALS: RESP 16
[2020-07-31 15:28] VITALS: BP 170/81; PULSE 88; TEMP 98.3
== END 2020-07-31 14:23 | disposition home or self-care (01) ==
LOC: EC 09:21
DX: R11.2 Nausea with vomiting, unspecified (principal); Z99.2 Dependence on renal dialysis; I13.2 Hypertensive heart and chronic kidney disease with heart failure and with stage 5 chronic kidney disease, or end stage renal disease; I50.9 Heart failure, unspecified; N18.6 End stage renal disease; E11.22 Type 2 diabetes mellitus with diabetic chronic kidney disease; Z79.84 Long term (current) use of oral hypoglycemic drugs; Z79.899 Other long term (current) drug therapy; F17.200 Nicotine dependence, unspecified, uncomplicated; Z89.421 Acquired absence of other right toe(s)
CPT/HCPCS: 80053; 83605; 83690; 83735; 85025; 74018; 99283; 96374; 96375 ×3; 96361 ×4; J1200; J2765; J2405; S0119; C9113; 90935

== ENCOUNTER 2020-09-12 07:26 | Observation (INO) | payer OTHER ==
[~2020-09-12 07:26] MED LIST: ALPRAZolam 0.25 MG TAB PO PRN; ALPRAZolam 0.5 MG TAB PO PRN; ASPIRIN 325 MG TAB PO STA; ATORVASTATIN 80 MG TAB PO STA; HEPARIN SODIUM,PORCINE 10,000 UNIT in SODIUM CHLORIDE 0.9% 1,000 ML IRRIGATION PRN; HEPARIN SODIUM,PORCINE 2,500 UNIT in SODIUM CHLORIDE 0.9% 250 ML IRRIGATION PRN; NITROGLYCERIN SL TABS 0.4 MG TAB SUBLINGUAL PRN; SODIUM CHLORIDE 0.9% 1,000 ML in EMPTY BAG 1 BAG IV ONE
[2020-09-12] MEDS ORDERED: SODIUM CHLORIDE 0.9% 1,000 ML IV ONE (07:36)
[2020-09-12 07:52] LABS: Glucose,Whole Blood 266 mg/dL (75-99)
[2020-09-12 08:09] LABS: Calcium 8.8 mg/dL (8.4-10.2); Potassium 4.6 mmol/L (3.5-5.1)
[2020-09-12] MEDS ORDERED: MIDAZOLAM 2 MG/2 ML VIAL IV ONE (08:11)
[2020-09-12] MEDS ORDERED: fentaNYL (PF) 50 MCG/ML 2 ML AMP IV ONE (08:11)
[2020-09-12] MEDS ORDERED: LIDOCAINE 1% INJ 10MG/ML (20 ML MDV) SQ ONE (08:15)
[2020-09-12] MEDS ORDERED: VERAPAMIL SYRINGE (5 MG/10 ML) INTRAARTER ONE (08:17)
[2020-09-12 08:31] LABS: Basophils # (A) 0.1 k/uL (0-0.2); Basophils % (A) 1 %; Eosinophils # (A) 0.3 k/uL (0-0.7); Eosinophils % (A) 3 %; HCT 26.5 % (39.0-53.0); Lymphocytes # (A) 1.1 k/uL (1.0-4.8); Lymphocytes % (A) 12 %; MCH 30.3 pg (25.0-35.0); MCHC 33.2 g/dL (31.0-37.0); MCV 91.4 fL (80.0-100.0); Mean Platelet Volume 7.8; Monocytes # (A) 0.7 k/uL (0-1.0); Monocytes % (A) 9 %; Neutrophils # (A) 6.3 k/uL (1.3-7.7); Neutrophils % (A) 74 %; Platelet Count 223 k/uL (150-450); RDW 14.1 % (11.5-15.5); WBC 8.6 k/uL (3.8-10.6)
[2020-09-12 08:33] LABS: HGB 8.8 gm/dL (13.0-17.5)
[2020-09-12] MEDS ORDERED: CLOPIDOGREL 75 MG TAB PO ONE (08:33)
[2020-09-12] MEDS ORDERED: IOPAMIDOL-370 125ML BTL INJ ONE (08:41)
[2020-09-12] MEDS ORDERED: RX INFO: IV CONTRAST WAS GIVEN 1 EACH MISC MISCELLANE PRN (08:48)
[2020-09-12] MEDS ORDERED: MAG HYDROX/AL HYDROX/SIMETH 30 ML CUP PO PRN (08:48)
[2020-09-12] MEDS ORDERED: ATROPINE SULFATE 0.1 MG/ML 10ML SYRINGE IV PRN (08:48)
[2020-09-12] MEDS ORDERED: NITROGLYCERIN SL TABS 0.4 MG TAB SUBLINGUAL PRN (08:48)
[2020-09-12] MEDS ORDERED: ZOLPIDEM 5 MG TAB PO PRN (08:48)
[2020-09-12] MEDS ORDERED: SODIUM CHLORIDE 0.9% 1,000 ML IV SCH (09:00)
[2020-09-12] MEDS ORDERED: VITAMINS PO SCH (09:00)
--- NOTE | 2020-09-12 09:50 | PTCA ---
PERCUTANEOUSTRANS CORORONARY ANGIOGRAPHY PERCUTANEOUS CORONARY INTERVENTION DATE OF SERVICE: September 12, 2020 PERFORMING PHYSICIAN: Kashif Browning MD. PROCEDURE PERFORMED: Successful stenting of the first obtuse marginal branch of left circumflex using 2.5 x 15 mm Xience DARIEN with an excellent angiographic result. INDICATION: This is a 40-year-old gentleman with an end-stage renal disease on dialysis, who was experiencing recently chest discomfort. He underwent an echocardiogram and that revealed severe cardiomyopathy. Subsequently, he underwent a heart catheterization and that revealed severe disease involving the proximal first obtuse marginal branch of the left circumflex. The patient initially was treated medically, but he continues to be symptomatic and because of that a PCI was advised. APPROACH: Right radial artery. COMPLICATION: None. LEVEL OF SEDATION: Moderate with sedation length of 25 minutes. PROCEDURE DESCRIPTION: After obtaining an informed consent, the patient was brought to the cardiac laborer adjustable steel joist. The right radial artery was cannulated using micropuncture technique and a micropuncture wire passed easily then I placed a 6-Kiswahili sheath at the right radial artery. After that I gave the patient 2 mg of verapamil IA and 8000 units of heparin IV. Please note that additional 2000 of heparin given throughout the procedure with continuous ACT monitoring throughout the procedure. After that, I did engage the left main using JL3.5 guide. I did wire the left circumflex and then OM1 using a run-through wire. PTCA ballooning was performed using 2.5 x 12 mm balloon before I deployed 2.5 x 15 mm Xience drug-eluting stent where the stent was positioned under fluoroscopic guidance and deployed under its nominal pressure. The following angiogram showed good angiographic results and the procedure was completed without any complication. POSTPROCEDURE MANAGEMENT: 1. Dual anti-platelet therapy. 2. Risk factor modifications. 3. Aggressive cholesterol control. 4. Follow up with the patient. MMODL / IJN: [id number] /
[2020-09-12 14:44] VITALS: BMI 23.5
[2020-09-12 17:14] LABS: Glucose,Whole Blood 331 mg/dL (75-99)
[2020-09-12] MEDS: carvediloL 6.25 MG TAB PO SCH (18:06)
[2020-09-12 20:11] LABS: Glucose,Whole Blood 363 mg/dL (75-99)
[2020-09-12] MEDS: INSULIN ASPART (NovoLOG) 100 UNIT/ML VIAL SQ SCH (20:28)
[2020-09-12] MEDS: ATORVASTATIN 80 MG TAB PO SCH (20:28)
[2020-09-13 06:02] LABS: Basophils # (A) 0.1 k/uL (0-0.2); Basophils % (A) 1 %; Eosinophils # (A) 0.2 k/uL (0-0.7); Eosinophils % (A) 2 %; HCT 26.4 % (39.0-53.0); HGB 9.2 gm/dL (13.0-17.5); Lymphocytes # (A) 0.7 k/uL (1.0-4.8); Lymphocytes % (A) 7 %; MCH 32.1 pg (25.0-35.0); MCV 91.7 fL (80.0-100.0); Monocytes # (A) 0.7 k/uL (0-1.0); Monocytes % (A) 7 %; Neutrophils # (A) 8.2 k/uL (1.3-7.7); Neutrophils % (A) 83 %; Platelet Count 219 k/uL (150-450); RBC 2.87 m/uL (4.30-5.90); RDW 13.9 % (11.5-15.5); WBC 9.8 k/uL (3.8-10.6)
[2020-09-13 06:25] LABS: African American GFR (CKD) 8 (>60 ml/min/1.73 sqM); Anion Gap 11 mmol/L; Blood Urea Nitrogen 64 mg/dL (9-20); Calcium 8.8 mg/dL (8.4-10.2); Carbon Dioxide 25 mmol/L (22-30); Chloride 99 mmol/L (98-107); Glucose 187 mg/dL (74-99); Non-African American GFR(CKD) 7 (>60 ml/min/1.73 sqM); Potassium 4.6 mmol/L (3.5-5.1); Sodium 135 mmol/L (137-145)
[2020-09-13 07:24] LABS: Glucose,Whole Blood 216 mg/dL (75-99)
[2020-09-13] MEDS: amLODIPine 10 MG TAB PO SCH (09:26)
[2020-09-13] MEDS: hydrALAZINE HCL 25 MG TAB PO SCH ×3 (09:26→19:55)
[2020-09-13] MEDS: CLOPIDOGREL 75 MG TAB PO SCH (09:26)
[2020-09-13] MEDS: carvediloL 6.25 MG TAB PO SCH ×2 (09:26→17:58)
[2020-09-13] MEDS: SENNOSIDES-DOCUSATE SODIUM 1 EACH TAB PO SCH (09:26)
[2020-09-13] MEDS: ASPIRIN 81 MG PO SCH (09:27)
[2020-09-13] MEDS: GLIMEPIRIDE 1 MG TAB PO SCH (09:27)
[2020-09-13] MEDS: INSULIN ASPART (NovoLOG) 100 UNIT/ML VIAL SQ SCH ×4 (09:28→21:37)
[2020-09-13 11:46] LABS: Glucose,Whole Blood 234 mg/dL (75-99)
--- NOTE | 2020-09-13 12:03 | DS ---
DISCHARGE SUMMARY ADMISSION DATE: September 12, 2020. DISCHARGE DATE: September 13, 2020. BRIEF HISTORY: This is a 40-year-old gentleman who underwent yesterday successful stenting of the left circumflex with good angiographic results and without any complication. The patient was seen today. He does have good right radial site. He is going to be discharged home on dual anti-platelet therapy and high-intensity statin and I will follow up with the patient next week in the office. MMLIANE / ANDREY: [id number] /
--- NOTE | 2020-09-13 12:27 | P.NPCON ---
History of Present Illness - Reason for Consult end stage renal disease - History of Present Illness Reason for consultation: End-stage renal disease History of present illness: Patient is a 40-year-old male seen in renal consultation for end-stage renal disease. He is maintained on hemodialysis on Friday schedule in [place]. Patient presented to the hospital for a cardiac catheterization and had a stent placed to the circumflex this morning. Does complain of mild chest pressure at this time. No shortness of breath. Oral intake is good. No vomiting or diarrhea. No fever or chills. No cough. Scheduled for dialysis today. Hemodynamically stable. Vital signs are stable. General: The patient appeared well nourished and normally developed. HEENT: Head exam is unremarkable. Neck is without jugular venous distension. LUNGS: Breath sounds decreased. HEART: Rate and Rhythm are regular. ABDOMEN: Soft, nontender. EXTREMITITES: No edema. 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, left arm- AV fistula Past Anesthesia/Blood Transfusion Reactions: No Reported Reaction Additional Past Anesthesia/Blood Transfusion Reaction / Comment(s): no hx blood transfusion Past Psychological History: No Psychological Hx Reported Smoking Status: Never smoker Past Alcohol Use History: None Reported Additional Past Alcohol Use History / Comment(s): quit smoking Jun 2020-started smoking at age 13 Past Drug Use History: Marijuana Additional Drug Use History / Comment(s): uses marijuana monthly - Past Family History Mother Family Medical History: No Reported History Medications and Allergies Home Medications Medication Instructions Recorded Confirmed Type Glimepiride [Amaryl] 1 mg PO DAILY 06/05/20 09/12/20 History carvediloL [Coreg] 6.25 mg PO BID #60 tab 06/07/20 09/12/20 Rx Sennosides/Docusate Sodium [Senna 1 tab PO DAILY 07/31/20 09/12/20 History Plus 8.6-50 mg Tablet] amLODIPine [Norvasc] 10 mg PO DAILY 07/31/20 09/12/20 History hydrALAZINE HCL [Apresoline] 25 mg PO TID 07/31/20 09/12/20 History polyethylene glycoL 3350 [Miralax] 17 gm PO DAILY 07/31/20 09/12/20 History Aspirin 81 mg PO DAILY 09/07/20 09/12/20 History Vitamins (Unk Dose) 1 tab PO DAILY 09/07/20 History Allergies Allergy/AdvReac Type Severity Reaction Status Date / Time No Known Allergies Allergy Verified 09/12/20 07:42 Physical Exam Vitals: Vital Signs Temp Pulse Pulse Pulse Resp BP Pulse Ox 09/13/20 07:00 98 F 97 17 206/90 93 L 09/13/20 02:00 98.5 F 91 16 140/67 93 L 09/12/20 19:50 98.1 F 83 16 147/67 92 L 09/12/20 19:17 18 09/12/20 15:05 96 09/12/20 14:50 97.6 F 78 18 152/69 88 L 09/12/20 14:00 16 09/12/20 12:33 71 16 126/76 93 L Intake and Output 09/12/20 09/13/20 09/13/20 22:59 06:59 14:59 Intake Total 250 218 Balance 250 218 Intake: Oral 250 218 Other: # Voids 1 2 Results - Lab Results Most recent lab results Calcium 8.8 mg/dL (8.4-10.2) 09/13/20 05:20 09/13/20 05:20 09/13/20 05:20 Assessment and Plan Plan: Assessment: 1. End-stage renal disease maintained on hemodialysis on Friday schedule. 2. Coronary artery disease status post cardiac catheterization with a stent placed to the circumflex. 3. Hypertension with chronic kidney disease. 4. Diabetes mellitus. Plan: Hemodialysis today. Maintain current antihypertensives. If blood pressure persistently above 140/90, increase dose of hydralazine. Thank you for the consultation. I will continue to follow the patient with you during his hospital stay.
[2020-09-13] MEDS: polyethylene glycoL 3350 17 GM POWD.PACK PO SCH (12:52)
[2020-09-13 17:07] LABS: Glucose,Whole Blood 188 mg/dL (75-99)
[2020-09-13] MEDS: ATORVASTATIN 80 MG TAB PO SCH (19:55)
[2020-09-13 20:34] LABS: Glucose,Whole Blood 192 mg/dL (75-99)
[2020-09-14 03:23] VITALS: PULSE 85
[2020-09-14 04:00] LABS: Hepatitis B Surface AB- Quant 3.9 mIU/mL; Hepatitis B Surface Antibody Non-Reactive (Non-Reactive); Hepatitis B Surface Antigen Non-Reactive (Non-Reactive)
[2020-09-14 07:40] VITALS: BP 172/76; RESP 16; TEMP 98.5
[2020-09-14 07:50] LABS: Glucose,Whole Blood 110 mg/dL (75-99)
[2020-09-14] MEDS: SENNOSIDES-DOCUSATE SODIUM 1 EACH TAB PO SCH (08:43)
[2020-09-14] MEDS: polyethylene glycoL 3350 17 GM POWD.PACK PO SCH (08:43)
[2020-09-14] MEDS: INSULIN ASPART (NovoLOG) 100 UNIT/ML VIAL SQ SCH (08:44)
[2020-09-14] MEDS: ASPIRIN 81 MG PO SCH (08:44)
[2020-09-14] MEDS: amLODIPine 10 MG TAB PO SCH (08:44)
[2020-09-14] MEDS: CLOPIDOGREL 75 MG TAB PO SCH (08:44)
[2020-09-14] MEDS: GLIMEPIRIDE 1 MG TAB PO SCH (08:44)
[2020-09-14] MEDS: hydrALAZINE HCL 25 MG TAB PO SCH (08:44)
[2020-09-14] MEDS: carvediloL 6.25 MG TAB PO SCH (08:51)
--- NOTE | 2020-09-14 09:32 | P.PN ---
Subjective Patient is seen in follow-up for end-stage renal disease. He is maintained on hemodialysis on Friday schedule. Patient completed half of hemodialysis treatment yesterday but is permacath got dislodged. It had to be subsequently removed. Patient has a functioning AV fistula. Denies chest pain or shortness of breath. No active complaints. Vital signs are stable. General: The patient appeared well nourished and normally developed. HEENT: Head exam is unremarkable. Neck is without jugular venous distension. LUNGS: Breath sounds decreased. HEART: Rate and Rhythm are regular. ABDOMEN: Soft, nontender. EXTREMITITES: No edema. Objective - Vital Signs Vital signs: Vital Signs Temp 98.5 F 09/14/20 07:00 Pulse 85 09/14/20 07:00 Resp 16 09/14/20 07:49 BP 172/76 09/14/20 07:00 Pulse Ox 95 09/14/20 07:00 Intake & Output 09/13/20 09/14/20 09/14/20 18:59 06:59 18:59 Intake Total 518 700 Balance 518 700 Intake: Oral 518 700 Other: Voiding Method Toilet Toilet # Voids 0 2 1 # Bowel Movements 1 - Labs CBC & Chem 7: 09/13/20 05:20 09/13/20 05:20 Labs: Abnormal Lab Results - Last 24 Hours (Table) 09/13/20 09/13/20 09/13/20 Range/Units 11:44 16:59 20:33 POC Glucose (mg/dL) 234 H 188 H 192 H (75-99) mg/dL 09/14/20 Range/Units 07:48 POC Glucose (mg/dL) 110 H (75-99) mg/dL Assessment and Plan Plan: Assessment: 1. End-stage renal disease maintained on hemodialysis on Friday schedule. 2. Coronary artery disease status post cardiac catheterization with a stent placed to the circumflex. 3. Hypertension with chronic kidney disease. 4. Diabetes mellitus. Plan: Hemodialysis tomorrow using AV fistula with small needles. Discussed with vascular surgery. Increase dose of hydralazine to 50 mg 3 times daily. Potential discharge today.
[2020-09-14] MEDS ORDERED: hydrALAZINE HCL 50 MG TAB PO SCH (16:00)
== END 2020-09-14 11:05 | disposition home or self-care (01) ==
LOC: CATHCVL 07:26 → 6NMEDSUR 11:38 → CATHCVL 09-14 06:37 → 6NMEDSUR 09-14 06:37
PROVIDERS: ADMIT Internal Medicine Interventional Cardiology; ATTEND Internal Medicine Interventional Cardiology
DX: N18.6 End stage renal disease (principal); T82.898A Other specified complication of vascular prosthetic devices, implants and grafts, initial encounter; I25.10 Atherosclerotic heart disease of native coronary artery without angina pectoris; I42.9 Cardiomyopathy, unspecified; I13.2 Hypertensive heart and chronic kidney disease with heart failure and with stage 5 chronic kidney disease, or end stage renal disease; I50.9 Heart failure, unspecified; Z95.828 Presence of other vascular implants and grafts; E11.22 Type 2 diabetes mellitus with diabetic chronic kidney disease; E78.5 Hyperlipidemia, unspecified; Z99.2 Dependence on renal dialysis; N28.9 Disorder of kidney and ureter, unspecified; Z87.891 Personal history of nicotine dependence; Z79.84 Long term (current) use of oral hypoglycemic drugs; Z79.899 Other long term (current) drug therapy; Z79.82 Long term (current) use of aspirin
CPT/HCPCS: 90970; 93005; 85347; 80048 ×2; 85025 ×2; 86706; 87340; G0378; C9600; C1887 ×2; C1725; C1769 ×3; C1874; C1894; J2250; J2001; J3010; J1644; Q9967